=== PATIENT | female | born 1975 | race Caucasian/White ===

== ENCOUNTER 2017-10-12 18:47 | Emergency (ER) | payer OTHER ==
[2017-10-12 19:21] VITALS: BP 136/85
--- NOTE | 2017-10-12 20:09 | UC ---
Headache HPI - HPI Summary HPI Summary: states she has history of migraine headaches, she has taken 1200 mg of ibuprofen so far and does not feel any relief. She drove herself to the clinic and has never taken sedating pain medication before. She c/o vomiting and nasal congestion but no cough or postnasal drip. She usually gets an aura but not this episode, just woke up with the pain 10/10, now is 7/10. Feels tenderness along temples, frontal area of head and btwn eyebrows - History Of Current Complaint Chief Complaint: UCHeadache Stated Complaint: HEADACHE Time Seen by Provider: 10/12/17 19:50 Hx Obtained From: Patient Hx Last Menstrual Period: 09/15/17 Onset/Duration: Sudden Onset, Lasting Hours Onset Of Symptoms: Sudden Initially Headache Was: Moderate, Severe Pain Intensity: 9 Timing: Constant Character: Sharp, Throbbing, Migraine Location of Headache: Frontal, Temporal Aggravating Factor(s): Bright Lights Allevating Factor(s): Rest, Medication Associated Signs And Symptoms: Positive: Nausea, Sinus Pressure - Risk Factors SAH Risk Factors: Negative Meningitis Risk Factors: Negative SDH Risk Factors: Negative Temporal Arteritis Risk Factors: Negative - Allergies/Home Medications Allergies/Adverse Reactions: Allergies Allergy/AdvReac Type Severity Reaction Status Date / Time MS Aspirin [Aspirin] Allergy Intermediate Vomiting Verified 10/12/16 09:58 MS Shellfish Allergy Allergy Anaphylatic Verified 10/12/16 09:58 [Shellfish Allergy] Shock Home Medications: Home Medications Ibuprofen TAB* [Motrin TAB* 400 MG] 400 mg PO Q6H PRN 10/12/17 [History Confirmed 10/12/17] PMH/Surg Hx/FS Hx/Imm Hx Previously Healthy: Yes Respiratory History: Asthma - Surgical History Surgical History: Yes Surgery Procedure, Year, and Place: left knee. tubal - Family History Known Family History: Positive: Hypertension - Social History Alcohol Use: Occasionally Substance Use Type: None Smoking Status (MU): Light Every Day Tobacco Smoker Type: Cigarettes Amount Used/How Often: less than 1/2 pk daily Review of Systems Gastrointestinal: Nausea Neurovascular: Other - headache All Other Systems Reviewed And Are Negative: Yes Physical Exam Triage Information Reviewed: Yes Appearance: Well-Nourished, Pain Distress Vital Signs: Initial Vital Signs Temp 99.1 F 10/12/17 19:18 Pulse 91 10/12/17 19:18 Resp 16 10/12/17 19:18 BP 136/85 10/12/17 19:18 Pulse Ox 100 10/12/17 19:18 Vital Signs Reviewed: Yes Eyes: Positive: Conjunctiva Clear ENT: Positive: Hearing grossly normal, Pharynx normal, Nasal congestion, TMs normal, Sinus tenderness Neck: Positive: Supple, Nontender, No Lymphadenopathy Respiratory: Positive: Chest non-tender, Lungs clear, Normal breath sounds, No respiratory distress Cardiovascular: Positive: RRR, No Murmur, Pulses Normal, Brisk Capillary Refill Abdomen Description: Positive: Nontender, No Organomegaly, Soft, Bruit Musculoskeletal Exam: Normal Musculoskeletal: Positive: Strength Intact, ROM Intact, No Edema Neurological: Positive: Alert, Muscle Tone Normal, Other: - cnII to XII intact, sensory intact, no ataxia, gait is normal, no adiadocokinesia Skin Exam: Normal Headache Course/Dx - Course Course Of Treatment: toradol IM administered along with Zofran, oral hydration and rest. Prescription of ultracet, zofran and flonase for nasal congestion. Referred to PCP - Differential Dx/Diagnosis Provider Diagnoses: migraine headache Discharge - Sign-Out/Discharge Documenting (check all that apply): Patient Departure - Discharge Plan Condition: Stable Disposition: HOME Patient Education Materials: Migraine Headache (ED) Forms: *Work Release Referrals: No Primary Care Phys,NOPCP [Primary Care Provider] - [facility] [place] [facility] [Outside] - Billing Disposition and Condition Condition: STABLE Disposition: Home
[2017-10-12] MEDS ORDERED: Ketorolac INJ* 30 MG/ML 1 ML VIAL IM ONE (20:10)
[2017-10-12] MEDS ORDERED: Ondansetron ODT TAB* 4 MG PO ONE (20:11)
== END 2017-10-12 21:11 | disposition home or self-care (01) ==
LOC: UCCORT 18:47
DX: G43.909 Migraine, unspecified, not intractable, without status migrainosus (principal)
CPT/HCPCS: 99212; A9270-GY; G0463; J1885

== ENCOUNTER 2018-06-03 07:27 | Emergency (ER) | payer OTHER ==
--- NOTE | 2018-06-03 07:35 | ED ---
Shortness of Breath - HPI Summary HPI Summary: Pt. is a 43 y.o female who presents to the ER for ongoing cough and SOB. Pt. states she started with flu like symptoms 4 days ago. She works at the [employer] and states numerous staff members were recently positive for flu. Pt. states she is prophylactically on tamiflu. Pt. has a hx of asthma and has bee using her LOYDA about 5-6 times per day that last few days which is an increase. Pt. denies fever, chills, abd. pain, V/D, CP. Associated sxs of nasal congestion and rhinorrhea. Denies hormonal therapy, hx of clots, recent long travels, leg swelling. Sxs are mild-moderate in severity. No current modifying factors. - History of Current Complaint Chief Complaint: EDShortnessOfBreath Time Seen by Provider: 06/03/18 07:33 Hx Obtained From: Patient - Allergy/Home Medications Allergies/Adverse Reactions: Allergies Allergy/AdvReac Type Severity Reaction Status Date / Time aspirin Allergy Intermediate Vomiting Verified 06/03/18 07:51 Latex, Natural Rubber Allergy Rash Verified 06/03/18 07:31 shellfish derived Allergy Anaphylatic Verified 06/03/18 07:51 Shock PMH/Surg Hx/FS Hx/Imm Hx Previously Healthy: Yes Cardiovascular History: Reports: Other Cardiovascular Problems/Disorders - hypotension normal 90/60's Respiratory History: Reports: Hx Asthma - Surgical History Surgery Procedure, Year, and Place: left knee. tubal Infectious Disease History: No Infectious Disease History: Denies: Traveled Outside the [place] in Last 30 Days - Family History Known Family History: Positive: Hypertension - Social History Occupation: Employed Full-time Lives: Alone Alcohol Use: Occasionally Substance Use Type: Reports: None Smoking Status (MU): Light Every Day Tobacco Smoker Type: Cigarettes Amount Used/How Often: less than 1/2 pk daily Review of Systems Constitutional: Negative Negative: Fever, Chills Eyes: Negative Positive: Nasal Discharge Cardiovascular: Negative Negative: Palpitations, Chest Pain Positive: Shortness Of Breath, Cough Gastrointestinal: Negative Negative: Abdominal Pain, Vomiting, Diarrhea Skin: Negative Neurological: Negative All Other Systems Reviewed And Are Negative: Yes Physical Exam Triage Information Reviewed: Yes Vital Signs On Initial Exam: Initial Vitals Temp Pulse Resp BP Pulse Ox 97.1 F 101 20 134/91 100 06/03/18 07:28 06/03/18 07:28 06/03/18 07:28 06/03/18 07:28 06/03/18 07:28 Vital Signs Reviewed: Yes Appearance: Positive: Well-Appearing - Pt. sitting on bed in NAD. Breathing/ speaking easily on RA. Skin: Positive: Warm, Dry Head/Face: Positive: Normal Head/Face Inspection Eyes: Positive: Normal, EOMI, SANTOSH, Conjunctiva Clear ENT: Positive: Pharynx normal, TMs normal Neck: Positive: Supple Respiratory/Lung Sounds: Positive: Other - Mild rhonchi in right lower lung.. Negative: Stridor, Unable to speak in full sentences, Fatigue Cardiovascular: Positive: Normal, RRR Neurological: Positive: Normal, CN Intact II-III Psychiatric: Positive: Affect/Mood Appropriate Diagnostics - Vital Signs Vital Signs Temp Pulse Resp BP Pulse Ox 06/03/18 07:28 97.1 F 101 20 134/91 100 - Laboratory Lab Statement: Any lab studies that have been ordered have been reviewed, and results considered in the medical decision making process. Course/Dx - Course Course Of Treatment: Pt. presenting for ongoing cough and wheeze. She is afebrile. O2 saturation is 99% on RA which is normal. Pt. given a duoneb which improved wheeze. CXR is negative for acute findings per radiology. Will treat for asthmatic bronchitis with zithromax and prednisone. Advised to use nebulizers at home. Close f.u with PCP for recheck and return to ER if sxs change or worsen. Pt. understands and agrees with plan. - Diagnoses Differential Diagnosis/HQI/PQRI: Positive: Asthma, Bronchitis, Pneumonia Provider Diagnoses: Asthmatic bronchitis Discharge - Sign-Out/Discharge Documenting (check all that apply): Patient Departure Patient Received Moderate/Deep Sedation with Procedure: No - Discharge Plan Condition: Good Disposition: HOME Prescriptions: Azithromycin TAB* [Zithromax TAB (Z-TROY) 250 mg #6 tabs] 2 tab PO .TODAY, THEN 1 DAILY #1 troy predniSONE TAB* [Deltasone 20 MG TAB*] 40 mg PO DAILY #10 tab Patient Education Materials: Acute Bronchitis (ED), Bronchospasm (ED) Forms: *Work Release Referrals: [facility] [Outside] [facility] [Outside] Additional Instructions: Schedule a follow up appointment with the [facility] Take medication as directed Use nebulizer every 4-6 hours Increase fluids and rest Return to ER if symptoms change or worsen - Billing Disposition and Condition Condition: GOOD Disposition: Home
[2018-06-03] MEDS ORDERED: Albuterol/Ipratropium NEB.SOL* Albuterol 2.5 MG/Ipratropium 0.5 MG 3 ML INH ONE (07:40)
[2018-06-03 09:51] VITALS: BP 138/86
== END 2018-06-03 09:50 | disposition home or self-care (01) ==
LOC: ED 07:27
DX: J44.1 Chronic obstructive pulmonary disease with (acute) exacerbation (principal); J45.901 Unspecified asthma with (acute) exacerbation; F17.210 Nicotine dependence, cigarettes, uncomplicated; Z88.6 Allergy status to analgesic agent; Z91.040 Latex allergy status
CPT/HCPCS: 71046; 99282; A9270-GY

== ENCOUNTER 2019-02-04 07:08 | Emergency (ER) | payer OTHER ==
[2019-02-04 07:19] VITALS: BP 121/79
--- NOTE | 2019-02-04 07:31 | UC ---
Cardiac HPI - HPI Summary HPI Summary: 44-year-old woman comes in with a chief complaint of right-sided chest pain. Patient slipped and fell on icy steps 2 days ago striking her right lateral chest just underneath her right arm. She's had pain in that area ever since. Pain is worse with movement and deep breaths. Coughing and sneezing also makes the pain worse. Denies any abdominal pain eating and drinking normally.. Has not seen any blood in her urine and bowels are normal. Been taking ibuprofen which helps some with the pain. She has asthma. Does not feel short of breath at rest. - History of Current Complaint Chief Complaint: UCGeneralIllness Stated Complaint: RIGHT RIB PAIN S/P FALL Time Seen by Provider: 02/04/19 07:22 Hx Last Menstrual Period: 2 weeks ago Pain Intensity: 8 - Allergy/Home Medications Allergies/Adverse Reactions: Allergies Allergy/AdvReac Type Severity Reaction Status Date / Time aspirin Allergy Intermediate Vomiting Verified 02/04/19 07:20 Latex, Natural Rubber Allergy Rash Verified 02/04/19 07:20 shellfish derived Allergy Anaphylatic Verified 02/04/19 07:20 Shock PMH/Surg Hx/FS Hx/Imm Hx Previously Healthy: Yes Respiratory History: Asthma - Surgical History Surgical History: Yes Surgery Procedure, Year, and Place: left knee. tubal - Family History Known Family History: Positive: Hypertension - Social History Alcohol Use: Occasionally Substance Use Type: None Smoking Status (MU): Light Every Day Tobacco Smoker Type: Cigarettes Amount Used/How Often: less than 1/2 pk daily Review of Systems All Other Systems Reviewed And Are Negative: Yes Constitutional: Positive: Negative Skin: Positive: Negative Eyes: Positive: Negative ENT: Positive: Negative Respiratory: Positive: Other - see hpi Cardiovascular: Positive: Chest Pain, Other - see hpi Gastrointestinal: Positive: Negative Motor: Positive: Negative Neurovascular: Positive: Negative Musculoskeletal: Positive: Negative Neurological: Positive: Negative Psychological: Positive: Negative Is Patient Immunocompromised?: No Physical Exam Triage Information Reviewed: Yes Appearance: Well-Appearing, Well-Nourished, Pain Distress - Mild with deep inspiration. Vital Signs: Initial Vital Signs Temp 98.6 F 02/04/19 07:17 Pulse 94 02/04/19 07:17 Resp 18 02/04/19 07:17 BP 121/79 02/04/19 07:17 Pulse Ox 99 02/04/19 07:17 Vital Signs Reviewed: Yes Eye Exam: Normal Eyes: Positive: Conjunctiva Clear ENT: Negative: Nasal drainage Neck: Positive: Supple, Nontender Respiratory: Positive: Lungs clear, Normal breath sounds, No respiratory distress, Other: - Tender to palpation right lateral chest just underneath the arm. Cardiovascular: Positive: RRR Abdomen Description: Positive: Nontender Musculoskeletal: Positive: Strength Intact, Other: - Patient has pain in the right chest with movement of the right arm. Neurological: Positive: Alert, Muscle Tone Normal Psychological: Positive: Age Appropriate Behavior Skin Exam: Normal - Assessment/Plan Course Of Treatment: Waiter/Waitress Tourist Class: Lukasz Azevedo C ([id number]) Manager Of Business Operations: JADA ( KEVINANCE) Report Date: 02/04/2019 07:43:00 Report Status: Final ====== Start of Report Content Patient Name: SARA GERARD Medical Record#: [id number] Ordering Physician: Hans Good MD Acct.#: [id number] : Age: 44 Sex: F Location: [facility] Exam Date: 02/04/19721 ADM Status: REG ER Order Information: RIBS RT UNI W/PA CH MIN 3 VWS Accession Number: [id number] CPT: 95578 Indication: RIGHT side chest pain post fall. Comparison: June 03, 2018 Technique: Dual-energy PA chest and 3 dedicated RIGHT rib views Report: Grossly nondisplaced fracture of the RIGHT fifth rib laterally with early healing response and associated mild pleural thickening. Negative for pleural effusion or pneumothorax. The heart, pulmonary vasculature, and mediastinal contours are unremarkable. IMPRESSION: #. Nondisplaced RIGHT fifth rib fracture with early healing response. <Electronically signed by Lukasz Azevedo MD in OV> 02/04/19738 Dictated By: Lukasz Azevedo MD Dictated Date/Time: 02/04/19736 Transcribed Date/Time: 02/04/19736 Copy to: CC:No Primary Care Phys,NOPCP ; Hans Good MD Imaging - [facility] Imaging - [facility] Imaging - [facility] [address] [place] [address] [address] [address] ph ([phone]) ph ([phone]) ph ([phone]) End of Report Content - Clinical Impression Provider Diagnosis: Fracture of rib of right side Discharge ED - Sign-Out/Discharge Documenting (check all that apply): Patient Departure All imaging exams completed and their final reports reviewed: Yes - Discharge Plan Condition: Stable Disposition: HOME Prescriptions: HYDROcodone/ACETAMIN 5-325 MG* [[place] 5-325 TAB*] 1 tab PO Q4H PRN #30 tab MDD 6 PRN Reason: Pain - Moderate Patient Education Materials: Rib Fracture (ED) Referrals: [facility] [Outside] Additional Instructions: FOLLOW UP WITH YOUR DOCTOR. GET REEVALUATED SOONER IF NOT IMPROVING OR WORSE; PAIN, SHORTNESS OF BREATH, FEVER, SIGNS OF INFECTION OR ANY QUESTIONS OR CONCERNS. USE THE INCENTIVE SPIROMETER EVERY 4 HOURS WHILE AWAKE TO HELP AVOID RESPIRATORY INFECTION - Billing Disposition and Condition Condition: STABLE Disposition: Home
== END 2019-02-04 08:15 | disposition home or self-care (01) ==
LOC: UCCORT 07:08
DX: S22.31XA Fracture of one rib, right side, initial encounter for closed fracture (principal); J45.909 Unspecified asthma, uncomplicated; F17.210 Nicotine dependence, cigarettes, uncomplicated; Z88.6 Allergy status to analgesic agent; Z91.040 Latex allergy status; Z91.013 Allergy to seafood; W00.0XXA Fall on same level due to ice and snow, initial encounter; Y92.9 Unspecified place or not applicable
CPT/HCPCS: 99212; G0463

== ENCOUNTER 2019-04-22 07:23 | Emergency (ER) | payer OTHER ==
[2019-04-22 07:51] VITALS: BP 123/75
[2019-04-22 08:09] LABS: Influenza A Molecular Negative (Negative); Influenza B Molecular Negative (Negative)
--- NOTE | 2019-04-22 09:01 | UC ---
FLU HPI - HPI Summary HPI Summary: 44 yo [employer] with 3 days of subjective fever, malaise, sinus congestion , sore throat, loose stools and myalgias. She has not had increased shortness of breath, and no increased use of albuterol. - History of Current Complaint Chief Complaint: UCRespiratory Stated Complaint: POSS. FLU Time Seen by Provider: 04/22/19 08:51 Hx Obtained From: Patient Hx Last Menstrual Period: 03/28/19 Onset/Duration: Sudden Onset, Lasting Days Severity Currently: Mild Severity Initially: Moderate Pain Intensity: 7 Associated Signs & Symptoms: Positive: Fever, Myalgia, Sore Throat, Headache Related Hx: Possible Flu/Infectious Exposure - Allergy/Home Medications Allergies/Adverse Reactions: Allergies Allergy/AdvReac Type Severity Reaction Status Date / Time aspirin Allergy Intermediate Vomiting Verified 04/22/19 07:45 Latex, Natural Rubber Allergy Rash Verified 04/22/19 07:45 shellfish derived Allergy Anaphylatic Verified 04/22/19 07:45 Shock Home Medications: Home Medications Phenylephrine/Dm/Acetaminop/GG [Mucinex Fast-Max Cold-Flu Liq] 2 tbsp PO Q4H PRN 04/22/19 [History Confirmed 04/22/19] PMH/Surg Hx/FS Hx/Imm Hx - Additional Past Medical History Additional PMH: Smoker. Previously Healthy: Yes Respiratory History: Asthma - Surgical History Surgical History: Yes Surgery Procedure, Year, and Place: left knee. tubal - Family History Known Family History: Positive: Hypertension - Social History Occupation: Employed Full-time Lives: With Family Alcohol Use: Occasionally Substance Use Type: None Smoking Status (MU): Light Every Day Tobacco Smoker Type: Cigarettes Amount Used/How Often: 6-7 cigarettes daily Review of Systems All Other Systems Reviewed And Are Negative: Yes Constitutional: Positive: Fever, Fatigue Skin: Positive: Negative Eyes: Positive: Negative ENT: Positive: Sore Throat, Sinus Congestion Respiratory: Positive: Cough. Negative: Shortness Of Breath Cardiovascular: Negative: Palpitations, Chest Pain Gastrointestinal: Positive: Negative Genitourinary: Positive: Negative Motor: Positive: Negative Neurovascular: Positive: Negative Musculoskeletal: Positive: Negative Neurological/Mental Status: Positive: Headache Psychological: Positive: Negative Is Patient Immunocompromised?: No Physical Exam Triage Information Reviewed: Yes Appearance: No Pain Distress, Ill-Appearing - looks mildly unwell Vital Signs: Initial Vital Signs Temp 98.8 F 04/22/19 07:47 Pulse 86 04/22/19 07:47 Resp 16 04/22/19 07:47 BP 123/75 04/22/19 07:47 Pulse Ox 100 04/22/19 07:47 ENT: Positive: Pharynx normal, TMs normal. Negative: Tonsillar swelling, Tonsillar exudate Neck: Positive: Supple, Nontender, Enlarged Nodes @ - few mildly enlarged posterior cervical nodes. Respiratory: Positive: Lungs clear, Normal breath sounds Cardiovascular: Positive: RRR, No Murmur Abdomen Description: Positive: Nontender, No Organomegaly, Soft Musculoskeletal Exam: Normal Neurological Exam: Normal Psychological Exam: Normal Skin Exam: Normal Diagnostics - Laboratory Lab Results: rapid flu negative. Flu Course/Dx - Course Course Of Treatment: Symptomatic treatment of viral illness. Off work, increase rest and fluids. - Differential Dx/Diagnosis Differential Diagnosis/HQI/PQRI: Influenza, Upper Respiratory Infection Provider Diagnosis: Viral syndrome Discharge ED - Sign-Out/Discharge Documenting (check all that apply): Patient Departure All imaging exams completed and their final reports reviewed: No Studies - Discharge Plan Condition: Stable Disposition: HOME Patient Education Materials: Viral Syndrome (ED) Forms: *Work Release Referrals: No Primary Care Phys,NOPCP [Primary Care Provider] - Additional Instructions: Rest at home, and increase fluids. Continue use of acetaminophen for control of fever and aches. Follow up if you have persistent fever or increased cough and shortness of breath. - Billing Disposition and Condition Condition: STABLE Disposition: Home
== END 2019-04-22 09:15 | disposition home or self-care (01) ==
LOC: UCCORT 07:23
DX: B34.9 Viral infection, unspecified (principal); R53.81 Other malaise; R09.81 Nasal congestion; J02.9 Acute pharyngitis, unspecified; M79.10 Myalgia, unspecified site; J45.909 Unspecified asthma, uncomplicated; F17.210 Nicotine dependence, cigarettes, uncomplicated; R53.83 Other fatigue; R05 Cough; R51 Headache; Z88.6 Allergy status to analgesic agent; Z91.040 Latex allergy status; Z91.013 Allergy to seafood
CPT/HCPCS: 99211; G0463